=== PATIENT | male | born 1950 | race Caucasian/White ===

== ENCOUNTER 2019-11-16 22:14 | Emergency (ER) | payer MEDICARE ==
[~2019-11-16] VITALS: Ht 185.4 cm; Wt 83.3 kg
[2019-11-16] MEDS ORDERED: GABA800T5 PO (22:38)
--- NOTE | 2019-11-16 22:38 | NUR ---
PT TO ED WITH C/O FLUSHED FACE, HALP PRESSURE AROUND HEAD, DENIES POLANCO, LIGHT HEADEDNESS. DENIES ANY OTHER C/O AT THIS TIME. PT DENIES CP, CARDIAC HX, HTN. PT CONNECTED TO ALL MONITORING, CALL LIGHT WITHIN REACH, ALL SAFETY MEASURES IN PLACE. [facility] AT FOR SUPPORT.
[2019-11-16 23:09] LABS: BASOPHILS # (AUTO) 0.03 x10^3/uL (0-0.1); BASOPHILS % (AUTO) 0 % (0-1); EOSINOPHILS # (AUTO) 0.08 x10^3/uL (0-0.4); EOSINOPHILS % (AUTO) 1 % (1-7); LYMPHOCYTES # (AUTO) 1.94 x10^3/uL (1-3.4); LYMPHOCYTES % (AUTO) 21 % (22-44); MD NO; MEAN CORPUSCULAR HEMOGLOBIN 30.4 pg (27.5-34.5); MEAN CORPUSCULAR HGB CONC 33.2 g/dL (33.2-36.2); MEAN CORPUSCULAR VOLUME 91.6 fL (81-97); MEAN PLATELET VOLUME 7.9 fL (7.4-10.4); MONOCYTES # (AUTO) 0.94 x10^3/uL (0.2-0.8); MONOCYTES % (AUTO) 10 % (2-9); NEUTROPHILS # (AUTO) 6.37 x10^3/uL (1.8-6.8); NEUTROPHILS % (AUTO) 68 % (42-75); PLATELET COUNT 312 x10^3/uL (130-400); RED BLOOD COUNT 5.77 x10^6/uL (4.38-5.82); RED CELL DISTRIBUTION WIDTH 12.3 % (9.4-14.8)
[2019-11-16 23:14] LABS: ALBUMIN 4.2 g/dL (3.4-5.0); ANION GAP 5 mmol/L (5-15); CALCIUM 9.3 mg/dL (8.5-10.1); CHLORIDE 107 mmol/L (98-107); CREATININE 1.11 mg/dL (0.7-1.3)
[2019-11-16 23:18] LABS: TROPONIN I < 0.015 ng/mL (0.000-0.045)
[2019-11-17 00:04] VITALS: BP 161/80
--- NOTE | 2019-11-17 00:05 | NUR ---
PT UP TO BATHROOM WITH STEADY GAIT. PT DENIES ANY NEEDS AT THIS TIME.
== END 2019-11-17 01:05 | disposition home or self-care (01) ==
LOC: ED 11-17
DX: I10 Essential (primary) hypertension (principal); R51 Headache; R42 Dizziness and giddiness
CPT/HCPCS: 36415; 70450; 71046; 80048; 82040; 84484; 85025; 93005; 99285